=== PATIENT | female | born 2000 | race Caucasian/White ===

== ENCOUNTER 2022-12-24 21:07 | Emergency (ER) | payer OTHER ==
[~2022-12-24] VITALS: Ht 157.4 cm; Wt 46.7 kg
[~2022-12-24 21:07] MED LIST: AMOXIL250 MG PO; AMOXIL250 MG/5 M PO; CLARITIN10 MG PO; FLONASE0.05 MG/AC NS; KEFLEX250 MG/5 M PO; MOTRIN CHI100 MG/51 PO; MOTRIN400 MG PO; PREDNISOLON5 MG/5 ML PO
[2022-12-24] MEDS ORDERED: VENLAFAXINE H37.5 M5 PO (21:20)
[2022-12-24] MEDS ORDERED: CIPRO500 MG PO (21:32)
[2022-12-24] MEDS ORDERED: HYDROCODONE-AC1 EACH PO (21:32)
== END 2022-12-24 21:59 | disposition home or self-care (01) ==
LOC: ED 21:07
DX: N75.0 Cyst of Bartholin's gland (principal); F17.200 Nicotine dependence, unspecified, uncomplicated; Z79.899 Other long term (current) drug therapy